=== PATIENT | male | born 1985 | race Two or more races ===

== ENCOUNTER 2017-06-15 04:12 | Inpatient (IN) | payer MEDICAID, OTHER, SELFPAY ==
[~2017-06-15] VITALS: Ht 180.3 cm; Wt 88.0 kg
[2017-06-15] MEDS ORDERED: MORPHINE 4 MG/ML 1ML SYRINGE IV ONE ×2 (04:45→07:45)
[2017-06-15] MEDS ORDERED: ONDANSETRON 4MG/2ML VIAL (J2405) IV ONE (04:45)
[2017-06-15 04:46] LABS: MEAN CORPUSCULAR HEMOGLOBIN 30.4 pg (27.0-33.0); MEAN CORPUSCULAR HGB CONC 34.9 g/dl (32.0-36.5); MEAN CORPUSCULAR VOLUME 86.9 fl (80.0-96.0); PLATELET COUNT, AUTOMATED 158 10^3/uL (150-450); RED CELL DISTRIBUTION WIDTH 12.8 % (11.5-14.5); WHITE BLOOD COUNT 25.6 10^3/uL (4.0-10.0)
[2017-06-15 04:54] LABS: ADD MANUAL DIFFER YES; DIFF SLIDE NUMBER 107
[2017-06-15 05:12] LABS: ANION GAP 8 MEQ/L (8-16); BLOOD UREA NITROGEN 17 MG/DL (7-18); CALCIUM LEVEL 9.8 MG/DL (8.5-10.1); CARBON DIOXIDE LEVEL 27 MEQ/L (21-32); CHLORIDE LEVEL 101 MEQ/L (98-107); CREATININE FOR GFR 1.25 MG/DL (0.70-1.30); GLOMERULAR FILTRATION RATE > 60.0 (>60); GLUCOSE, FASTING 148 MG/DL (70-105); POTASSIUM SERUM 3.6 MEQ/L (3.5-5.1); SODIUM LEVEL 136 MEQ/L (136-145)
[2017-06-15] MEDS ORDERED: ISOVUE-370 76% 100ML VIAL (Q9967) As Ordered ONE (05:23)
[2017-06-15 05:49] LABS: EOSINOPHILS 1 % (0-5)
--- NOTE | 2017-06-15 06:40 | REPUSA ---
CLINICAL HISTORY: Chest, abdominal pain. TECHNIQUE: Multiple axial, sagittal and coronal CT images were obtained through the chest, abdomen an d pelvis with IV contrast material. No contrast in the lumen of the aorta. Contrast is seen in the co llecting systems. COMMENTS: Bilateral cavitating subpleural consolidations are noted in the lower lobes measuring 1.8 cm on the r ight side and 2.2 cm on the left side. There is bilateral peribronchial interstitial thickening suggestive of bronchitis. Subsegmental atelectatic airspace disease in the anterior segment of the right upper lobe. There is no evidence of pleural or parenchymal mass. There are no pleural effusions. There is no evidence of hilar or mediastinal lymphadenopathy. Specifically, there is no evidence for paratracheal and supraclavicular adenopathy. There is no evide nce for a chest or abdominal wall nodule or mass. The heart and great vessels are within normal limit s. The liver is moderately enlarged decreased attenuation without mass or defect. The gallbladder is wit hin normal limits. There is no intrahepatic or extrahepatic biliary ductal dilatation. The spleen is normal. The pancreas is of normal contour and attenuation characteristics. There is no evidence of adrenal mass. Both kidneys demonstrate prompt and equal nephrograms. The kidn eys are normal in size, shape and configuration. There is no evidence of renal mass. There is no hydr oureter or hydronephrosis. There is no bowel wall thickening. Sigmoid diverticulosis is present. No evidence for small or large bowel obstruction. There is no evidence of abdominal ascites or lymphadenopathy. There is no evidence of intrinsic or extrinsic bladder mass. There is no pelvic ascites or lymphadeno besty. The bony structures are free of lytic or blastic lesions. IMPRESSION: No contrast is identified in the lumen of the aorta. Limited evaluation of the lumen of the aorta. The contrast is seen in the collecting systems. No evidence of aortic aneurysm. Bronchitis. Hepatomegaly with fatty liver infiltration. Bilateral cavitating subpleural consolidation are noted in the lower lobes measuring 1.8 cm on the ri ght side and 2.2 cm on the left side. Possibly infectious/inflammatory pathology. Clinical evaluation and followup are suggested to exclude underlying neoplastic pathology. Thank you for your kind referral of this patient.
[2017-06-15] MEDS ORDERED: PERCOCET 5MG/325MG TAB PO ONE (07:00)
[2017-06-15] MEDS ORDERED: cefTRIAXone SOD 1 GM in D5W 50 ML IV ONE (07:15)
[2017-06-15] MEDS ORDERED: AZITHROMYCIN INJ 500 MG, VIAL MATE ADAPTER 1 EACH in D5W 250 ML IV ONE (07:15)
[2017-06-15] MEDS ORDERED: NS 1,000 ML IV ONE ×3 (07:15→08:00)
[2017-06-15 07:23] LABS: ALBUMIN 4.6 GM/DL (3.2-5.2); ALBUMIN/GLOBULIN RATIO 1.31 (1.00-1.93); ALKALINE PHOSPHATASE 121 U/L (45-117); ALT/SGPT 40 U/L (12-78); AST/SGOT 16 U/L (15-37); BILIRUBIN,DIRECT 0.3 MG/DL (0.0-0.2); BILIRUBIN,TOTAL 1.2 MG/DL (0.2-1.0); TOTAL PROTEIN 8.1 GM/DL (6.4-8.2)
[2017-06-15] MEDS ORDERED: ALBUTEROL SULFATE 2.5 MG/0.5 ML INH NEB SOLN INH ONE (07:45)
[2017-06-15] MEDS ORDERED: VANCOMYCIN HCL 1,000 MG, VIAL MATE ADAPTER 1 EACH in D5W 250 ML IV ONE (07:45)
[2017-06-15] MEDS ORDERED: methylPREDNISolone INJ 40 MG/1 ML VIAL (J2920) IV ONE (07:45)
[2017-06-15] MEDS ORDERED: IPRATROPIUM 0.5MG/ALBUTEROL 2.5MG INH SOL UD 3ML (DUONEB)(J7620) NEB ONE (07:45)
[2017-06-15] MEDS ORDERED: ACETAMINOPHEN TAB 650MG DOSE (2X325MG) PO PRN (08:00)
[2017-06-15 08:08] LABS: ABG BASE EXCESS 0.2 (-2.0-2.0); ABG HCO3 24.1 MEQ/L (22.0-26.0); ABG PARTIAL PRESSURE O2 71.7 mmHg (75.0-100.0); ABG STANDARD HCO3 24.6 MEQ/L (22.0-26.0); ABG TOTAL CO2 25.3 MEQ/L (22.0-29.0); ABG pH (ARTERIAL) 7.432 UNITS (7.350-7.450)
--- NOTE | 2017-06-15 08:08 | REP ---
Chest two views HISTORY: Chest pain Comparison: None Patchy densities are present in the right upper lobe and left lower lobe consistent with atelectasis or infiltrates. The heart is normal in size. The pulmonary vasculature is normal in appearance. The bony structure is intact. IMPRESSION: Right upper and left lower lobe atelectasis or infiltrate. Signed by Henry López MD 06/15/2017 07:59 A
[2017-06-15] MEDS ORDERED: methylPREDNISolone INJ 125 MG/2 ML VIAL (J2930) IV ONE (08:15)
[2017-06-15] MEDS ORDERED: ACETAMINOPHEN 325 MG TAB PO ONE (08:30)
[2017-06-15 08:35] LABS: METHADONE URINE NEGATIVE (NEGATIVE)
[2017-06-15] MEDS: ENOXAPARIN 40 MG/0.4 ML SYRINGE (J1650) SC SCH (10:12)
[2017-06-15] MEDS: NS 1,000 ML IV SCH ×3 (11:08→22:00)
--- NOTE | 2017-06-15 11:35 | REP ---
BILATERAL LOWER EXTREMITY DUPLEX VEINS: HISTORY: Rule out DVT. RIGHT LOWER EXTREMITY: There are no filling defects in the deep venous system. The deep venous system is patent. IMPRESSION: There is no deep venous thrombosis. LEFT LOWER EXTREMITY: There are no filling defects in the deep venous system. The deep venous system is patent. IMPRESSION: There is no deep venous thrombosis. Signed by Henry López MD 06/15/2017 11:43 A
[2017-06-15] MEDS: VANCOMYCIN HCL 1,000 MG, VIAL MATE ADAPTER 1 EACH in D5W 250 ML IV SCH ×2 (12:12→20:14)
[2017-06-15 12:38] LABS: INR 1.12
[2017-06-15] MEDS: MORPHINE 4 MG/ML 1ML SYRINGE IV PRN ×3 (13:09→22:58)
[2017-06-15 14:00] VITALS: BP 161/84
[2017-06-15] MEDS ORDERED: SODIUM CHLORIDE 0.9% 1000 ML IV ONE (14:00)
--- NOTE | 2017-06-15 14:31 | HPEPDOC ---
General Date of Admission Jun 15, 2017 at 09:44 Chief Complaint The patient is a 32-year-old male who presented to the ER with complaints of pain with breathing and upper chest pain History of Present Illness Patient is a 32 year old male with no significant PMHx who presented to the ER with complaints of upper back pain and lower chest pain for the last few days. He noted that the pain started in his upper back, indicating the area of his lower lungs. He noted that after the pain started he has been complaining of a non-productive cough. He notes fevers and chills at home as well, but has not measure his temperature. He noted that his pain continued to progress and he started to experience the pain on his anterior chest wall bilaterally. He describes the pain as a 10/10 initially, currently at a 5/10 after he received the pain medications. He notes that the pain is continuous, radiating from back to front, worsened with deep inspiration and alleviated with pain medications in the ER. Patient notes that he has been having a runny nose for a few days as well. He also notes that he use Cocaine a few days ago and Marijuana a while back. He denies any abdominal pain, nausea, vomiting, diarrhea, constipation or dysuria. Home Medications No Active Prescriptions or Reported Meds Allergies Coded Allergies: No Known Allergies (Unverified , 06/15/17) Past Medical History Medical History None reported Surgical History None reported Family History - Mother and Father with no reported medical problems - Noted to have no family history of blood clots / pulmonary embolism - Noted that his paternal grandfather has a history of Lung cancer (was a smoker ) Social History - Reports he quit smoking a few months ago, was an occasional smoker prior to that, Reports social alcohol use; He admitted to using Cocaine and Marijuana - Denies recent travel or sick contacts - Lives with - 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 Review of Symptoms Other systems Negative otherwise stated in HPI Vital Signs - Vitals: BP 146/67, HR 76, RR 20, Sat 100%NC4L, Temp 97.7F - General: Lying in bed, No acute distress, Speaking in full sentences, AAOx3 - HEENT: NC, AT, PERRLA, EOMI - CVS: RRR, +S1S2 - Lungs: Poor inspiratory effort 2/2 pain, No appreciable crackles / rhonchi - Abdomen: Soft, Non-distended, Non-tender - Extremities: + PPx4, No lower extremity edema, No calf tenderness - Neuro: No focal motor or sensory deficit - Skin: No visible rashes Laboratory Data Labs 24H Laboratory Tests 2 06/15/17 04:35: Urine Amphetamines Screen NEGATIVE, Urine Benzodiazepines Screen NEGATIVE, Urine Opiates Screen POSITIVEH, Urine Methadone Screen NEGATIVE, Urine Barbiturates Screen NEGATIVE, Urine Phencyclidine Screen NEGATIVE, Urine Cocaine Metabolite Screen POSITIVEH, Urine Cannabinoids Screen POSITIVEH 06/15/17 04:37: White Blood Count 25.6H, Red Blood Count 5.27, Hemoglobin 16.0, Hematocrit 45.8 , Mean Corpuscular Volume 86.9, Mean Corpuscular Hemoglobin 30.4, Mean Corpuscular Hemoglobin Concent 34.9, Red Cell Distribution Width 12.8, Platelet Count 158, Monocytes # (Auto) , Neutrophils 86H, Lymphocytes (Manual) 6L, Monocytes (Manual) 7, Eosinophils (Manual) 1, Red Blood Cell Morphology NORMAL, Platelet Estimate NORMAL, Urine Appearance HAZY, Urine Color YELLOW, Urine pH 7.0, Urine Specific [place] 1.024, Urine Protein 1+H, Urine Glucose (UA) NEGATIVE, Urine Ketones NEGATIVE, Urine Urobilinogen 0.2, Urine Bilirubin NEGATIVE, Urine Leukocyte Esterase NEGATIVE, Urine Blood NEGATIVE, Urine Nitrite NEGATIVE, Urine WBC (Auto) 1, Urine RBC (Auto) 4H, Urine Hyaline Casts ( Auto) 0, Urine Bacteria (Auto) NEGATIVE, Urine Squamous Epithelial Cells 0, Urine Mucus (Auto) SMALL, Urine Sperm (Auto) , Lactic Acid Level 2.4*H 06/15/17 04:38: Anion Gap 8, Glomerular Filtration Rate > 60.0, Blood Urea Nitrogen 17, Creatinine 1.25, Sodium Level 136, Potassium Level 3.6, Chloride Level 101, Carbon Dioxide Level 27, Calcium Level 9.8, Aspartate Amino Transf (AST/SGOT) 16 , Alanine Aminotransferase (ALT/SGPT) 40, Alkaline Phosphatase 121H, Total Bilirubin 1.2H, Direct Bilirubin 0.3H, Total Creatine Kinase 70, Creatine Kinase MB 1.0, Creatine Kinase MB Relative Index 1.38, Troponin I < 0.02, Total Protein 8.1, Albumin 4.6, Albumin/Globulin Ratio 1.31 06/15/17 07:47: Blood Gas Bicarbonate Standard 24.6, Arterial Blood pH 7.432, Arterial Blood Partial Pressure CO2 37.0, Arterial Blood Partial Pressure O2 71.7L, Arterial Blood Total CO2 25.3, Arterial Blood HCO3 24.1, Arterial Blood Base Excess 0.2, Arterial Blood Oxygen Saturation 95.4 06/15/17 10:45: Total Creatine Kinase 59, Creatine Kinase MB 1.0, Creatine Kinase MB Relative Index 1.69, Troponin I < 0.02 06/15/17 12:05: Prothrombin Time 14.6H, Prothromb Time International Ratio 1.12, Activated Partial Thromboplast Time 29.9, Lactic Acid Followup at 4 Hours 2.5*H CBC/BMP Laboratory Tests 06/15/17 04:37 Red Blood Count 5.27, Mean Corpuscular Volume 86.9, Mean Corpuscular Hemoglobin 30.4, Mean Corpuscular Hemoglobin Concent 34.9, Red Cell Distribution Width 12.8 , Monocytes # (Auto) 06/15/17 04:38 Calcium Level 9.8 Microbiology Microbiology 06/15/17 Blood Culture, Received Pending 06/15/17 Blood Culture, Received Pending 06/15/17 MRSA Screen, Received Pending 06/15/17 Influenza Virus Type A Antigen - Final, Complete 06/15/17 Influenza Virus Type B Antigen - Final, Complete Plan / VTE VTE Prophylaxis Ordered?: Yes Plan Plan Sepsis likely 2/2 bilateral cavitary pneumonia, possibly 2/2 pulmonary embolism - Presented with pleuritic chest pain and back pain, worsened with deep inspiration - Noted to have fever and chills at home - Recent viral illness - Physical with poor inspiratory effort, febrile at 101.1 - Leukocytosis of 25.6; Lactic acidosis of 2.5 - ABG does not reveal any respiratory compromise; elevate Aa gradient for age - CTA 06/15: failed timing of contrast, hepatomegaly with fatty infiltration, bilateral cavitating subpleural consolidation in LL on R (1.8cm) and L (2.2cm) - Duplex US LE 06/15: Negative bilaterally - Will check Strep pneumonia antigen, Urine legionella antigen, Sputum culture, Blood cultures, MRSA screen - Will plan to repeat CT angiography of chest to definitively rule out PE - s/p Ceftriaxone, Azithromycin and Vancomycin in ER - Will start IV fluid hydration, c/w Vancomycin (Methicillin resistant Staph aureus coverage for post-viral pneumonia) and Zosyn (Coverage for anaerobic species given cavitary lung lesions) - Will discuss with Dr. Costa (Pulmonary) - Will keep in PCU for monitoring Pleuritic chest pain likely 2/2 above, unlikely 2/2 cardiac etiology - Atypical description of chest pain for cardiac etiology - Troponin x2 negative - Will review EKG - c/w PCU monitoring - Will c/w pain control for now Lactic acidosis - s/p Bolus in ER - Will give additional bolus now - Will start IV fluid hydration Polysubstance abuse - Drug screen positive for Cocaine, Cannabinoids and Opiates - Admitted to Cocaine, Cannabinoids - Did mention that he takes Vicodin on occasion for tooth pain Gastrointestinal prophylaxis - Will start Protonix DVT prophylaxis - Will start Lovenox JOSE MCGOVERN MD Jun 15, 2017 14:31
[2017-06-15] MEDS: PANTOPRAZOLE 40MG INJ (PROTONIX) (C9113) IV SCH (14:51)
[2017-06-15] MEDS: PIPERACILLIN/TAZOBACTAM SOD 3.375 GM in D5W 50 ML IV SCH ×2 (14:51→22:57)
--- NOTE | 2017-06-15 15:23 | PHACANCOPD ---
PHARMACY VANCOMYCIN DOSING Pt Demographics Demographics Patient Age:32 , Weight:86.400 , Gender: male Adjusted Body Weight Date: 06/15/17, Adjusted Body Weight: [NA] Kg Events Past 24 Hours Events Past 24 Hours: YES: Fever, Elevation in WBC, NO: Dialysis, Diuretic Therapy, Change in CrCl, Pending Diagnostics, Pending Procedures, Other Vancomycin Vancomycin indication: cavitary lesions in lung Vancomycin Target Ranges: 15-20 mcg/ml Vancomycin Load Y/N: Yes Load Dose Date Time Vancomycin Load Dose: 1000mg Date: 06/15 Time: ~08:00 Vancomycin Dose Date: 06/15/17. Current Vancomycin Dose: [1g IV q8h @11] Intermittent Dosing?: No Labs Labs Item Value Date Time White Blood Count 25.6 10^3/uL H 06/15/17 0437 Creatinine 1.25 MG/DL 06/15/17 0438 Vital Signs Label Value Date Time Patient Temperature 101.1 degrees F 06/15/17 0819 Temperature Source Oral 06/15/17 0819 Patient Temperature 99.1 degrees F 06/15/17 0855 Temperature Source Oral 06/15/17 0855 Micro Microbiology 06/15/17 Blood Culture, Received Pending 06/15/17 Blood Culture, Received Pending 06/15/17 MRSA Screen, Received Pending 06/15/17 Influenza Virus Type A Antigen - Final, Complete 06/15/17 Influenza Virus Type B Antigen - Final, Complete Creatinine Clearance Date:06/15/17. Creatinine Clearance: [89 ml/min]. Pending Labs Vanco trough scheduled 06/16 @10:00 Assessment and Plan Maintaining Current Dose?: Yes Reason for dose change: No Dose Change Pharmacist Note Pharmacist Note Date: 06/15/17. Pharmacist note: pt has been admitted for chest pain/pneumonia, CT imaging notable for b/l cavitary lesions in the lung. Pt has a Hx of drug use , MRSA and blood cultures are pending. He has not been on vancomycin at our facility in the past. I have started on a 2g load (1g @~08:00, 12:15) followed by 1g IV q8h. I have a trough scheduled tomorrow morning before the 11am dose. SCr is slightly elevated, pt received multiple NS boluses in the ER. We will continue to monitor and follow up as necessary. Esvin Licona Pharm.D. Jun 15, 2017 15:23
[2017-06-15 16:00] VITALS: BP 160/83
[2017-06-15 20:00] VITALS: BP 148/71
--- NOTE | 2017-06-15 20:46 | ECGEPIP ---
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 Electronically Signed On 06-15-2017 20:46:23 EDT by Dre Jarrett
[2017-06-15 22:25] VITALS: BP 143/85
[2017-06-16] VITALS (14 sets, daily range): BP systolic 133–156; BP diastolic 74–86; O2SAT 97
[2017-06-16] MEDS: VANCOMYCIN HCL 1,000 MG, VIAL MATE ADAPTER 1 EACH in D5W 250 ML IV SCH ×3 (04:09→17:40)
[2017-06-16] MEDS: NS 1,000 ML IV SCH ×4 (04:09→23:44)
[2017-06-16] MEDS: MORPHINE 4 MG/ML 1ML SYRINGE IV PRN ×2 (04:20→07:47)
[2017-06-16] MEDS: PIPERACILLIN/TAZOBACTAM SOD 3.375 GM in D5W 50 ML IV SCH ×3 (05:38→22:24)
[2017-06-16 05:53] LABS: MEAN CORPUSCULAR HEMOGLOBIN 29.9 pg (27.0-33.0); MEAN CORPUSCULAR HGB CONC 33.5 g/dl (32.0-36.5); MEAN CORPUSCULAR VOLUME 89.3 fl (80.0-96.0); PLATELET COUNT, AUTOMATED 115 10^3/uL (150-450); RED CELL DISTRIBUTION WIDTH 13.2 % (11.5-14.5)
[2017-06-16 06:03] LABS: ADD MANUAL DIFFER YES; DIFF SLIDE NUMBER 81
[2017-06-16 06:06] LABS: ALBUMIN 3.1 GM/DL (3.2-5.2); ALBUMIN/GLOBULIN RATIO 0.86 (1.00-1.93); ALKALINE PHOSPHATASE 72 U/L (45-117); ALT/SGPT 24 U/L (12-78); ANION GAP 7 MEQ/L (8-16); AST/SGOT 8 U/L (15-37); BILIRUBIN,TOTAL 0.6 MG/DL (0.2-1.0); BLOOD UREA NITROGEN 11 MG/DL (7-18); CALCIUM LEVEL 8.8 MG/DL (8.5-10.1); CARBON DIOXIDE LEVEL 23 MEQ/L (21-32); CHLORIDE LEVEL 108 MEQ/L (98-107); GLOMERULAR FILTRATION RATE > 60.0 (>60); GLUCOSE, FASTING 146 MG/DL (70-105); POTASSIUM SERUM 4.4 MEQ/L (3.5-5.1); SODIUM LEVEL 138 MEQ/L (136-145); TOTAL PROTEIN 6.7 GM/DL (6.4-8.2)
[2017-06-16] MEDS: PANTOPRAZOLE 40MG INJ (PROTONIX) (C9113) IV SCH (07:46)
[2017-06-16] MEDS: ENOXAPARIN 40 MG/0.4 ML SYRINGE (J1650) SC SCH (07:47)
[2017-06-16] MEDS ORDERED: cefTRIAXone SOD 1 GM in D5W 50 ML IV SCH (08:00)
[2017-06-16] MEDS: MORPHINE 15 MG SA TAB PO SCH ×2 (08:30→20:43)
[2017-06-16] MEDS ORDERED: AZITHROMYCIN INJ 500 MG, VIAL MATE ADAPTER 1 EACH in D5W 250 ML IV SCH (09:00)
[2017-06-16] MEDS: HYDROmorphone HCL 1 MG/ML SYRINGE (J1170) IV PRN ×4 (09:17→21:10)
--- NOTE | 2017-06-16 12:53 | IPNPDOC ---
Text Note Date of Service The patient was seen on 06/16/17. NOTE Subjective: Patient is a 32 year old male with no significant PMHx who presented to the ER with complaints of upper back pain and lower chest pain for the last few days. Patient was found to have 2 cavitary lesions in his lungs bilaterally. He was admitted for pneumonia to the hospitalist service. Patient was seen and examined at the bedside. He notes that he has not had any relief with Morphine and appears to be visible in pain. He notes that he has had some productive sputum that could be cultured. He denies any palpitations, nausea, vomiting, diarrhea or dysuria. Objective: Vitals (See below) General: Lying in bed, no acute distress, uncomfortable 2/2 pain, AAOx3 HEENT: NC, AT CVS: RRR, +S1S2 Lungs: Poor inspiratory effort, Abdomen: Soft, ND, NT Extremities: - Edema, - Calf tenderness Assessment and plan: Sepsis - likely 2/2 bilateral cavitary lesions in lungs - possibly 2/2 poor dentition, possibly 2/2 pneumonia, less likely 2/2 pulmonary embolism - Presented with pleuritic chest / back pain, fever and chills, and poor dentition - No fevers since admission - Leukocytosis has show improvement ; s/p Lactic acidosis - CTA 06/15: failed timing of contrast, hepatomegaly with fatty infiltration, bilateral cavitating subpleural consolidation in LL on R (1.8cm) and L (2.2cm) - Duplex US LE 06/15: Negative bilaterally - Will check Strep pneumonia antigen, Urine legionella antigen, Sputum culture pending, - Blood cultures negative at 24 hours, MRSA screen Negative, Influenza negative - s/p Ceftriaxone, Azithromycin and Vancomycin in ER - c/w Zosyn and Vancomycin (Day #2) Pleuritic chest pain - likely 2/2 above, unlikely 2/2 cardiac etiology - Atypical description of chest pain for cardiac etiology - Troponin x2 negative - EKG 06/15: Sinus tachy at 102, No ST segment elevation or T wave abnormalities noted - c/w PCU monitoring - Will adjust pain regimen; will add long acting Morphine and Change Morphine to Dilaudid for breakthrough pain s/p Lactic acidosis - s/p Bolus NS - c/w IV fluid hydration Polysubstance abuse - Drug screen positive for Cocaine, Cannabinoids and Opiates - Admitted to Cocaine, Cannabinoids - Did mention that he takes Vicodin on occasion for tooth pain Gastrointestinal prophylaxis - c/w Protonix DVT prophylaxis - c/w Lovenox VS,Fishbone, I+O VS, Fishbone, I+O Laboratory Tests 06/16/17 05:33 Red Blood Count 4.11 L, Mean Corpuscular Volume 89.3, Mean Corpuscular Hemoglobin 29.9, Mean Corpuscular Hemoglobin Concent 33.5, Red Cell Distribution Width 13.2, Calcium Level 8.8, Aspartate Amino Transf (AST/SGOT) 8 L, Alanine Aminotransferase (ALT/SGPT) 24, Alkaline Phosphatase 72, Total Bilirubin 0.6, Total Protein 6.7, Albumin 3.1 #L Vital Signs Date Time Temp Pulse Resp B/P (MAP) Pulse Ox O2 Delivery O2 Flow Rate FiO2 06/16/17 10:00 97 Room Air 06/16/17 09:27 18 06/16/17 08:00 98.6 83 134/85 (101) 06/15/17 16:00 4.0 I&O- Last 24 Hours up to 6 AM 06/17/17 06:00 Intake Total 1000 ml Output Total 600 ml Balance 400 ml JOSE MCGOVERN MD Jun 16, 2017 12:53
[2017-06-16] MEDS ORDERED: HYDROmorphone HCL 1 MG/ML SYRINGE (J1170) IV ONE (15:45)
[2017-06-17] VITALS (14 sets, daily range): BP systolic 132–144; BP diastolic 72–91; O2SAT 96–98
[2017-06-17] MEDS: VANCOMYCIN HCL 1,000 MG, VIAL MATE ADAPTER 1 EACH in D5W 250 ML IV SCH ×2 (02:43→11:44)
[2017-06-17] MEDS: HYDROmorphone HCL 1 MG/ML SYRINGE (J1170) IV PRN ×7 (02:44→23:44)
[2017-06-17 06:14] LABS: BASO % 0.3 % (0.0-1.0); EOS # 0.2 10^3/uL (0.0-0.50); EOS % 1.9 % (0.0-3.0); IMMATURE GRANULOCYTE % 0.4 % (0-0); LYMPH # 1.6 10^3/uL (1.5-4.5); LYMPH % 13.9 % (24.0-44.0); MEAN CORPUSCULAR HEMOGLOBIN 29.3 pg (27.0-33.0); MEAN CORPUSCULAR HGB CONC 33.2 g/dl (32.0-36.5); MEAN CORPUSCULAR VOLUME 88.4 fl (80.0-96.0); MONO # 0.9 10^3/uL (0.0-0.8); MONO % 7.3 % (0.0-5.0); NEUTROPHILS % 76.2 % (36.0-66.0); PLATELET COUNT, AUTOMATED 121 10^3/uL (150-450); RED CELL DISTRIBUTION WIDTH 13.2 % (11.5-14.5); WHITE BLOOD COUNT 11.8 10^3/uL (4.0-10.0)
[2017-06-17] MEDS: NS 1,000 ML IV SCH (06:19)
[2017-06-17] MEDS: PIPERACILLIN/TAZOBACTAM SOD 3.375 GM in D5W 50 ML IV SCH ×3 (06:19→21:27)
[2017-06-17 06:45] LABS: ALBUMIN 3.2 GM/DL (3.2-5.2); ALBUMIN/GLOBULIN RATIO 0.78 (1.00-1.93); ALKALINE PHOSPHATASE 77 U/L (45-117); ALT/SGPT 24 U/L (12-78); ANION GAP 6 MEQ/L (8-16); AST/SGOT 12 U/L (15-37); BILIRUBIN,TOTAL 0.8 MG/DL (0.2-1.0); BLOOD UREA NITROGEN 13 MG/DL (7-18); CALCIUM LEVEL 8.8 MG/DL (8.5-10.1); CARBON DIOXIDE LEVEL 26 MEQ/L (21-32); CHLORIDE LEVEL 105 MEQ/L (98-107); CREATININE FOR GFR 0.99 MG/DL (0.70-1.30); GLOMERULAR FILTRATION RATE > 60.0 (>60); GLUCOSE, FASTING 84 MG/DL (70-105); MAGNESIUM LEVEL 2.1 MG/DL (1.8-2.4); POTASSIUM SERUM 3.5 MEQ/L (3.5-5.1); SODIUM LEVEL 137 MEQ/L (136-145); TOTAL PROTEIN 7.3 GM/DL (6.4-8.2)
[2017-06-17] MEDS: KCL 40MEQ in NS 1000ML 1,000 ML IV SCH ×2 (08:36→20:33)
[2017-06-17] MEDS: MORPHINE 15 MG SA TAB PO SCH ×2 (08:37→20:33)
[2017-06-17] MEDS: ENOXAPARIN 40 MG/0.4 ML SYRINGE (J1650) SC SCH (08:37)
[2017-06-17] MEDS: PANTOPRAZOLE 40MG INJ (PROTONIX) (C9113) IV SCH (08:39)
--- NOTE | 2017-06-17 11:03 | IPNPDOC ---
Text Note Date of Service The patient was seen on 06/17/17. NOTE Subjective: Patient is a 32 year old male with no significant PMHx who presented to the ER with complaints of upper back pain and lower chest pain for the last few days. Patient was found to have 2 cavitary lesions in his lungs bilaterally. He was admitted for pneumonia to the hospitalist service. Patient was seen and examined at the bedside. He notes that he still has pain around his lower ribs and back, rated the pain as a 3/10 with the current pain medications. He also has noted that he has been coughing up more sputum. I have advised him that we will collect it for a sputum sample. Objective: Vitals (See below) General: Lying in bed, no acute distress, comfortable, AAOx3 HEENT: NC, AT CVS: RRR, +S1S2 Lungs: Poor inspiratory effort, no appreciable crackles / wheezing Abdomen: Soft, ND, NT Extremities: - Edema, - Calf tenderness Assessment and plan: Sepsis - likely 2/2 bilateral cavitary lesions in lungs - possibly 2/2 poor dentition, possibly 2/2 pneumonia, less likely 2/2 pulmonary embolism - Presented with pleuritic chest / back pain, fever and chills, and poor dentition - Remains afebrile - Leukocytosis significantly improved; CRP trending down; s/p Lactic acidosis - CTA 06/15: failed timing of contrast, hepatomegaly with fatty infiltration, bilateral cavitating subpleural consolidation in LL on R (1.8cm) and L (2.2cm) - Duplex US LE 06/15: Negative bilaterally - Strep pneumonia antigen / Urine legionella antigen / Sputum culture pending - Blood cultures negative at 48 hours, MRSA screen Negative, Influenza negative - s/p Ceftriaxone, Azithromycin and Vancomycin in ER - c/w Zosyn and Vancomycin (Day #3) - Will consider repeat CTA Pleuritic chest pain - likely 2/2 above, unlikely 2/2 cardiac etiology - Atypical description of chest pain for cardiac etiology - Troponin x2 negative - EKG 06/15: Sinus tachy at 102, No ST segment elevation or T wave abnormalities noted - c/w PCU monitoring - c/w Long acting morphine for maintenance and Dilaudid for breakthrough pain s/p Lactic acidosis - s/p Bolus NS - c/w IV fluid hydration; will reduce rate Polysubstance abuse - Drug screen positive for Cocaine, Cannabinoids and Opiates - Admitted to Cocaine, Cannabinoids - Did mention that he takes Vicodin on occasion for tooth pain Gastrointestinal prophylaxis - c/w Protonix DVT prophylaxis - c/w Lovenox VS,Fishbone, I+O VS, Fishbone, I+O Laboratory Tests 06/17/17 05:39 Red Blood Count 4.67, Mean Corpuscular Volume 88.4, Mean Corpuscular Hemoglobin 29.3, Mean Corpuscular Hemoglobin Concent 33.2, Red Cell Distribution Width 13.2 , Neutrophils (%) (Auto) 76.2 H, Lymphocytes (%) (Auto) 13.9 L, Monocytes (%) ( Auto) 7.3 H, Eosinophils (%) (Auto) 1.9, Basophils (%) (Auto) 0.3, Neutrophils # (Auto) 9.0 H, Lymphocytes # (Auto) 1.6, Monocytes # (Auto) 0.9 H, Eosinophils # (Auto) 0.2, Basophils # (Auto) 0.0, Calcium Level 8.8, Aspartate Amino Transf (AST/SGOT) 12 L, Alanine Aminotransferase (ALT/SGPT) 24, Alkaline Phosphatase 77 , Total Bilirubin 0.8, Total Protein 7.3, Albumin 3.2 Vital Signs Date Time Temp Pulse Resp B/P (MAP) Pulse Ox O2 Delivery O2 Flow Rate FiO2 06/17/17 09:29 20 Room Air 06/17/17 08:00 97.8 77 140/75 (96) 06/17/17 06:47 96 06/15/17 16:00 4.0 I&O- Last 24 Hours up to 6 AM 06/18/17 06:00 Intake Total 495 ml Output Total 0 ml Balance 495 ml JOSE MCGOVERN MD Jun 17, 2017 11:03
[2017-06-18] VITALS (14 sets, daily range): BP systolic 133–140; BP diastolic 79–90; O2SAT 93–97
[2017-06-18] MEDS: PIPERACILLIN/TAZOBACTAM SOD 3.375 GM in D5W 50 ML IV SCH ×2 (05:14→13:36)
[2017-06-18 05:45] LABS: BASO # 0.1 10^3/uL (0.0-0.2); BASO % 0.5 % (0.0-1.0); EOS # 0.6 10^3/uL (0.0-0.50); EOS % 6.3 % (0.0-3.0); IMMATURE GRANULOCYTE % 0.5 % (0-0); LYMPH # 1.5 10^3/uL (1.5-4.5); MEAN CORPUSCULAR HEMOGLOBIN 29.5 pg (27.0-33.0); MEAN CORPUSCULAR HGB CONC 33.8 g/dl (32.0-36.5); MEAN CORPUSCULAR VOLUME 87.3 fl (80.0-96.0); MONO # 0.8 10^3/uL (0.0-0.8); MONO % 8.9 % (0.0-5.0); NEUTROPHILS # 6.3 10^3/uL (1.8-7.7); NEUTROPHILS % 67.8 % (36.0-66.0); PLATELET COUNT, AUTOMATED 151 10^3/uL (150-450); RED CELL DISTRIBUTION WIDTH 12.8 % (11.5-14.5); WHITE BLOOD COUNT 9.4 10^3/uL (4.0-10.0)
[2017-06-18 06:19] LABS: ALKALINE PHOSPHATASE 74 U/L (45-117); ALT/SGPT 23 U/L (12-78); ANION GAP 8 MEQ/L (8-16); AST/SGOT 8 U/L (15-37); BILIRUBIN,TOTAL 0.9 MG/DL (0.2-1.0); BLOOD UREA NITROGEN 12 MG/DL (7-18); CALCIUM LEVEL 9.2 MG/DL (8.5-10.1); CARBON DIOXIDE LEVEL 25 MEQ/L (21-32); CHLORIDE LEVEL 105 MEQ/L (98-107); CREATININE FOR GFR 0.96 MG/DL (0.70-1.30); GLOMERULAR FILTRATION RATE > 60.0 (>60); GLUCOSE, FASTING 95 MG/DL (70-105); POTASSIUM SERUM 4.1 MEQ/L (3.5-5.1); SODIUM LEVEL 138 MEQ/L (136-145); TOTAL PROTEIN 7.3 GM/DL (6.4-8.2)
[2017-06-18] MEDS: KCL 40MEQ in NS 1000ML 1,000 ML IV SCH ×2 (07:39→17:37)
[2017-06-18] MEDS: MORPHINE 15 MG SA TAB PO SCH ×3 (09:06→22:30)
[2017-06-18] MEDS: PANTOPRAZOLE 40MG INJ (PROTONIX) (C9113) IV SCH (09:06)
[2017-06-18] MEDS: ENOXAPARIN 40 MG/0.4 ML SYRINGE (J1650) SC SCH (09:06)
[2017-06-18] MEDS: HYDROmorphone HCL 1 MG/ML SYRINGE (J1170) IV PRN ×2 (10:33→20:42)
--- NOTE | 2017-06-18 14:08 | IPNPDOC ---
Text Note Date of Service The patient was seen on 06/18/17. NOTE Subjective: Patient feels well. Still has a nonproductive cough. No chest pain/ palpitations. Objective: Vitals: (see below) General: No acute distress, laying comfortably in bed. HEENT: Moist mucous membranes. Neck: No JVD or lymphadenopathy Cardiac: RRR, No murmurs Pulm: Coarse crackles at the bases b/l. No wheezing, rhonchi Abd: NT/ND + BS Ext: No edema or cyanosis Labs (see below) Images: CT chest/abdomen/pelvis 06/15/17 IMPRESSION: No contrast is identified in the lumen of the aorta. Limited evaluation of the lumen of the aorta. The contrast is seen in the collecting systems. No evidence of aortic aneurysm. Bronchitis. Hepatomegaly with fatty liver infiltration. Bilateral cavitating subpleural consolidation are noted in the lower lobes measuring 1.8 cm on the right side and 2.2 cm on the left side. Possibly infectious/inflammatory pathology. Clinical evaluation and followup are suggested to exclude underlying neoplastic pathology. Assessment/Plan 1. Sepsis secondary to Bilateral cavitary lesions with consolidation- improving. Leukocytosis and CRP have trended down. Afebrile this point. On vancomycin and Zosyn. Does have poor dentition with history of cocaine/opioid/ marijuana use. Urine strep/Legionella sent. Blood cultures negative thus far. We will obtain consents for HIV test. ID has been consulted. Continue current antibiotics for now. 2. Back pain/chest wall pain- likely secondary to underlying cavitary lesions we will obtain a CT of the thoracic/lumbar spine. Pain control. 3. Lactic acidosis- resolved. 3. Polysubstance abuse- cessation counseling DVT prophy: Lovenox subcutaneous Dispo: VS,Fishbone, I+O VS, Fishbone, I+O Laboratory Tests 06/18/17 05:21 Red Blood Count 4.81, Mean Corpuscular Volume 87.3, Mean Corpuscular Hemoglobin 29.5, Mean Corpuscular Hemoglobin Concent 33.8, Red Cell Distribution Width 12.8 , Neutrophils (%) (Auto) 67.8 H, Lymphocytes (%) (Auto) 16.0 L, Monocytes (%) ( Auto) 8.9 H, Eosinophils (%) (Auto) 6.3 H, Basophils (%) (Auto) 0.5, Neutrophils # (Auto) 6.3, Lymphocytes # (Auto) 1.5, Monocytes # (Auto) 0.8, Eosinophils # (Auto) 0.6 H, Basophils # (Auto) 0.1, Calcium Level 9.2, Aspartate Amino Transf (AST/SGOT) 8 L, Alanine Aminotransferase (ALT/SGPT) 23, Alkaline Phosphatase 74, Total Bilirubin 0.9, Total Protein 7.3, Albumin 3.0 L Vital Signs Date Time Temp Pulse Resp B/P (MAP) Pulse Ox O2 Delivery O2 Flow Rate FiO2 06/18/17 12:00 97 Room Air 06/18/17 10:43 18 06/18/17 07:45 98.4 80 137/90 (106) 06/15/17 16:00 4.0 I&O- Last 24 Hours up to 6 AM 06/19/17 05:59 Intake Total 1905 ml Output Total 1050 ml Balance 855 ml IGOR LUCAS MD Jun 18, 2017 14:08
--- NOTE | 2017-06-18 15:28 | REP ---
CT THORACIC SPINE WITHOUT CONTRAST: HISTORY: Back pain. There is no disc bulge or herniation. The spinal canal and the neural foramina are patent. The intervertebral discs and vertebral bodies are normal in height. There is no subluxation. A small cavitary lesion is present in the right lower lobe. Patchy density is present in the left lower lobe consistent with atelectasis or infiltrate. A small left pleural effusion is present. IMPRESSION: 1. There is no disc bulge or herniation. 2. Small right lower lobe cavitary lesion, unchanged compared to the previous CT ANGIO chest. 3. Left lower lobe atelectasis or infiltrate and small left pleural effusion. Signed by Henry López MD 06/18/2017 03:38 P
--- NOTE | 2017-06-18 15:35 | REP ---
CT LUMBAR SPINE WITHOUT CONTRAST: HISTORY: Back pain. There is no disc bulge or herniation at the L1-2, L2-3 and L5-S1 levels. The nerves exit the neural foramina without compression. A diffuse disc bulge is present at the L3-4 level. There is minimal compression of the thecal sac. The L3 nerves exit the neural foramina without compression. A diffuse disc bulge is present at the L4-5 level. There is minimal compression of the thecal sac. The L4 nerves exit the neural foramina without compression. The L4-5 intervertebral disc is decreased in height consistent with disc degeneration. The vertebral bodies are normal in height. There is no subluxation. IMPRESSION: Diffuse disc bulges at the L3-4 and L4-5 levels with minimal thecal sac compression. Signed by Henry López MD 06/18/2017 03:38 P
[2017-06-18] MEDS ORDERED: ISOVUE-370 76% 100ML VIAL (Q9967) As Ordered ONE (16:29)
--- NOTE | 2017-06-18 17:08 | REP ---
CT of the chest with IV contrast, CT pulmonary angiography: Comparison is a chest CT dated 06/15/2017. There are no emboli in the pulmonary trunk or in the central pulmonary arteries. There is beam hardening artifact from the descending thoracic aorta. There are no emboli in the pulmonary lobe or segment branches. There are bilateral lower lobe pleural-based cavitary lesions, unchanged from the prior study. There is a left pleural effusion, similar to the prior study. There is no mediastinal adenopathy. There are enlarged right hilar nodes. There is no left hilar adenopathy. No axillary adenopathy. Thoracic aorta is unremarkable. Cardiac size is normal. There is no pericardial effusion. The visualized upper abdominal contents are unremarkable and unchanged. Impression: No pulmonary emboli. There is beam hardening artifact from the descending thoracic aorta. Left pleural effusion, unchanged. Bilateral lower lobe pleural-based cavitary lesions, unchanged. Right hilar adenopathy. Signed by Dev Feliz MD 06/18/2017 04:59 P
[2017-06-18] MEDS: CEFTAROLINE FOSAMIL 600 MG in D5W 50 ML IV SCH (17:37)
--- NOTE | 2017-06-18 19:04 | CR.PDOC ---
[facility] Consultation Consultation DATE OF CONSULTATION: Jun 15, 2017 at 04:12 PRIMARY CARE PHYSICIAN: None REFERRING PROVIDER: Dr. Montero ATTENDING PHYSICIAN: Dr. Laurent Foote REASON FOR CONSULTATION/CHIEF COMPLAINT: Cavitary lesions. HISTORY OF PRESENT ILLNESS: Mr. Monsalve is a 32-year-old male without a significant past medical history who presents to [facility] with persistent cough and back pain. Patient states that he was in his usual state of health up until three weeks ago. At that time he reported a runny nose with clear nasal secretions and an itchy nose. Denies any other allergy-type symptoms, fever, night sweats, chills, myalgias. He presented to the [facility] on [facility] and was prescribed an inhaler and an antibiotic as he was told he was nearing pneumonia. He states that they checked him for MRSA and influenza and was negative for both. He completed an approximate 10-day course of antibiotics, but does not feel that his upper respiratory symptoms improved. One day prior to the date of admission patient states that he developed a fever of 105.2. He took Tylenol which reduced the fever. On the day of admission at approximately 1-2am patient states that he could not get comfortable in bed and was restless due to severe, sharp left- sided low back pain that radiates to his left anterior abdomen with difficulty breathing and a persistent cough. The pain was so severe he was unable to stand. He vomited up noodles that he had the night before. Denies hematemesis or hemoptysis. Admits to decreased appetite, but no changes in weight. Had a loose, watery stool this morning without noticeable blood. Patient has never been incarcerated or in the . Denies recent travel to the [place] or a history of caving. Admits to exposures to bats and birds on his property, but not on a consistent basis. Admits to fishing and boating and is always on the water. He denies intravenous drug abuse. Admits to regular cannabis use for approximately 15 years. Denies recent marijuana use secondary to cough. States he carries an ADHD diagnosis, but did not like the medication he was and the marijuana helped with the ADHD symptoms. Admits to recent use of cocaine and opiates, but states that he does not usually use illicit drugs besides marijuana and that the cocaine and opiates were on a "stupid night." He received his childhood vaccinations, but has not had any recent vaccinations and does not have a primary care provider. Denies ever being tested for TB. Occasionally develops reflux symptoms and will take Omeprazole OTC. Patient was evaluated at [facility] on 04/21/2017 and was treated with Prednisone, Augmentin, and Ventolin. Current work-up this admission includes laboratory data which showed a leukocytosis of 25.6, a CRP of 16.00, a positive toxicology screen for cocaine, opiates, and marijuana. Different imaging modalities reported below revealed bilateral pleural cavitary lesions, right hilar adenopathy, no pulmonary embolism or evidence of deep venous thrombosis, and hepatomegaly with fatty infiltration of the liver without elevation in bilirubin or transaminases. Blood cultures, influenza, and MRSA screen were all negative. ALLERGIES: Please see below. HOME MEDICATIONS: Please see below. PAST MEDICAL HISTORY: 1. ADHD. 2. Hypertension. 3. History of bilateral hydroceles. PAST SURGICAL HISTORY: 1. [place] teeth extraction. 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 HEENT: Denies headache, tinnitus, peripheral vision loss, hearing loss. CARDIOVASCULAR: Denies chest pain, palpitations. RESPIRATORY: Admits to difficulty breathing; denies orthopnea, PND. GENITOURINARY: Denies hematuria, urinary urgency urinary frequency, dysuria. MUSCULOSKELETAL: Admits to severe, sharp left-sided back pain that has since improved; denies myalgias, weakness. GASTROINTESTINAL: Admits to one episode of non-bloody vomitus prior to admission , one episodes of loose, watery diarrhea this morning; denies nausea, abdominal pain, constipation. SKIN: Denies skin rashes, lesions, bruising, bleeding. NEUROLOGICAL: Denies numbness, tingling. ENDOCRINE: Admits to decreased appetite; denies weight changes. HEMATOLOGIC/LYMPHATIC: Denies hemoptysis, hematemesis, melena, hematochezia. ALLERGIC/IMMUNOLOGIC: Admits to runny nose, post-nasal drip cough; denies nasal congestion, itchy/watery eyes, sore throat. PHYSICAL EXAMINATION: VITAL SIGNS: Please see below. GENERAL APPEARANCE: Well nourished, well developed male, appears stated age, does not appear engaging, no acute distress. HEENT: Atraumatic, normocephalic, PERRL, EOMI, oral mucosa appears pink and moist, nasal septum appears midline, nasal secretions appreciated on internal nasal examination, crusted serous material noted on the right-sided internal nasal mucosa on the lateral aspect near the nasal orifice of the right nares, no evidence of epistaxis, no cervical, occipital, or clavicular lymphadenopathy appreciated. RESPIRATORY: Somewhat diminished breath sounds appreciated on the right lower lobe with possible fine inspiratory crackles, no wheeze or rhonchi, posterior lung percussion did not reveal any consolidation, tympany, or dullness CARDIOVASCULAR: Regular rate and rhythm, normal S1 and S2, no murmur, rub, click. ABDOMEN: Abdominal hair noted diffusely across the entire abdomen, somewhat round appearing, tympanic to percussion throughout, soft, non-tender, non- distended, hepatomegaly, bowel sounds appreciated. EXTREMITIES: Warm, dry, intact, without edema, peripheral pulses appreciated bilaterally, equal, symmetrical, +2, no visible open lesions. NEUROLOGICAL: CN II-XII grossly intact. PSYCHIATRIC: Alert, somewhat disengaged. LABORATORY DATA: Please see below. IMAGING: CT abdomen and pelvis with contrast IMPRESSION: No contrast is identified in the lumen of the aorta. Limited evaluation of the lumen of the aorta. The contrast is seen in the collecting systems. No evidence of aortic aneurysm. Bronchitis. Hepatomegaly with fatty liver infiltration. Bilateral cavitating subpleural consolidation are noted in the lower lobes measuring 1.8 cm on the right side and 2.2 cm on the left side. Possibly infectious/inflammatory pathology. Clinical evaluation and followup are suggested to exclude underlying neoplastic pathology. Chest x-ray, two view IMPRESSION: Right upper and left lower lobe atelectasis or infiltrate. Duplex ultrasound bilateral lower extremities IMPRESSION: There is no deep venous thrombosis. CT thoracic spine without contrast IMPRESSION: 1. There is no disc bulge or herniation. 2. Small right lower lobe cavitary lesion, unchanged compared to the previous CT ANGIO chest. 3. Left lower lobe atelectasis or infiltrate and small left pleural effusion. CT lumbar spine without contrast IMPRESSION: Diffuse disc bulges at the L3-4 and L4-5 levels with minimal thecal sac compression. CT chest angiography IMPRESSION: No pulmonary emboli. There is beam hardening artifact from the descending thoracic aorta. Left pleural effusion, unchanged. Bilateral lower lobe pleural-based cavitary lesions, unchanged. Right hilar adenopathy. ASSESSMENT/PLAN: This is a 32-year-old male without significant medical history that presents with cough and severe, sharp left-sided low back pain. Found to have bilateral pleural cavitary lesions. Patient was started on Vancomycin and Zosyn. The Vancomycin was discontinued today. Based on the patient's history and imaging there is a concern for post-viral staphylococcus pulmonary infection resulting in the cavitary lesions. For this reason the patient has been started on Ceftaroline for MRSA coverage. This could also be a right- sided bacterial endocarditis resulting in septic emboli. For this reason a transthoracic echocardiogram has been ordered. Have also ordered immunoglobulin A, G, and M for possible immunodeficiency based on chronicity of symptoms. Also obtaining a hepatitis C PCR and HIV. Thank you for involving infectious disease in the care of Mr. Monsalve. ID will continue to follow this patient and participate in his care. Vital Signs/I&O Vital Signs Date Time Temp Pulse Resp B/P (MAP) Pulse Ox O2 Delivery O2 Flow Rate FiO2 06/18/17 16:30 98.9 90 20 133/79 (97) 97 Room Air 06/15/17 16:00 4.0 I&O- Last 24 Hours up to 6 AM 06/19/17 06:00 Intake Total 1670 ml Output Total 450 ml Balance 1220 ml Laboratory Data Labs 24H Laboratory Tests 2 06/18/17 05:21: Immature Granulocyte % (Auto) 0.5H, White Blood Count 9.4, Red Blood Count 4.81 , Hemoglobin 14.2, Hematocrit 42.0, Mean Corpuscular Volume 87.3, Mean Corpuscular Hemoglobin 29.5, Mean Corpuscular Hemoglobin Concent 33.8, Red Cell Distribution Width 12.8, Platelet Count 151, Neutrophils (%) (Auto) 67.8H, Lymphocytes (%) (Auto) 16.0L, Monocytes (%) (Auto) 8.9H, Eosinophils (%) (Auto) 6.3H, Basophils (%) (Auto) 0.5, Neutrophils # (Auto) 6.3, Lymphocytes # (Auto) 1.5, Monocytes # (Auto) 0.8, Eosinophils # (Auto) 0.6H, Basophils # (Auto) 0.1, Immature Granulocyte # (Auto) 0.1H, Nucleated Red Blood Cells % (auto) 0.0, Anion Gap 8, Glomerular Filtration Rate > 60.0, Blood Urea Nitrogen 12, Creatinine 0.96, Sodium Level 138, Potassium Level 4.1, Chloride Level 105, Carbon Dioxide Level 25, Calcium Level 9.2, Aspartate Amino Transf (AST/SGOT) 8L , Alanine Aminotransferase (ALT/SGPT) 23, Alkaline Phosphatase 74, Total Bilirubin 0.9, Total Protein 7.3, Albumin 3.0L, Magnesium Level 2.0, C-Reactive Protein, Quantitative 11.70H, Albumin/Globulin Ratio 0.70L 06/18/17 15:39: CBC/BMP Laboratory Tests 06/18/17 05:21 Red Blood Count 4.81, Mean Corpuscular Volume 87.3, Mean Corpuscular Hemoglobin 29.5, Mean Corpuscular Hemoglobin Concent 33.8, Red Cell Distribution Width 12.8 , Neutrophils (%) (Auto) 67.8 H, Lymphocytes (%) (Auto) 16.0 L, Monocytes (%) ( Auto) 8.9 H, Eosinophils (%) (Auto) 6.3 H, Basophils (%) (Auto) 0.5, Neutrophils # (Auto) 6.3, Lymphocytes # (Auto) 1.5, Monocytes # (Auto) 0.8, Eosinophils # (Auto) 0.6 H, Basophils # (Auto) 0.1, Calcium Level 9.2, Aspartate Amino Transf (AST/SGOT) 8 L, Alanine Aminotransferase (ALT/SGPT) 23, Alkaline Phosphatase 74, Total Bilirubin 0.9, Total Protein 7.3, Albumin 3.0 L Microbiology Microbiology 06/15/17 Blood Culture - Preliminary, Resulted No Growth after 72 hours. All specime... 06/15/17 Blood Culture - Preliminary, Resulted No Growth after 72 hours. All specime... 06/15/17 MRSA Screen - Final, Complete 06/15/17 Influenza Virus Type A Antigen - Final, Complete 06/15/17 Influenza Virus Type B Antigen - Final, Complete Allergies Coded Allergies: No Known Allergies (Unverified , 06/15/17) Home Medications No Active Prescriptions or Reported Meds MARIA ALEJANDRA MOSQUERA Jun 18, 2017 19:01
[2017-06-18 19:09] LABS: IMMUNOGLOBULIN G 655 MG/DL (681-1648); IMMUNOGLOBULIN M 129 MG/DL (40-230)
[2017-06-19] MEDS: KCL 40MEQ in NS 1000ML 1,000 ML IV SCH ×2 (04:11→15:18)
[2017-06-19 05:15] VITALS: BP 136/75
[2017-06-19 05:35] LABS: BASO % 0.4 % (0.0-1.0); EOS # 0.8 10^3/uL (0.0-0.50); EOS % 6.8 % (0.0-3.0); LYMPH # 1.5 10^3/uL (1.5-4.5); LYMPH % 12.8 % (24.0-44.0); MEAN CORPUSCULAR HEMOGLOBIN 29.5 pg (27.0-33.0); MEAN CORPUSCULAR HGB CONC 34.3 g/dl (32.0-36.5); MEAN CORPUSCULAR VOLUME 86.1 fl (80.0-96.0); MONO % 9.6 % (0.0-5.0); NEUTROPHILS # 7.9 10^3/uL (1.8-7.7); NEUTROPHILS % 69.4 % (36.0-66.0); PLATELET COUNT, AUTOMATED 168 10^3/uL (150-450); RED CELL DISTRIBUTION WIDTH 12.6 % (11.5-14.5); WHITE BLOOD COUNT 11.4 10^3/uL (4.0-10.0)
[2017-06-19] MEDS: CEFTAROLINE FOSAMIL 600 MG in D5W 50 ML IV SCH ×2 (06:05→18:33)
[2017-06-19 06:12] LABS: ERYTHROCYTE SEDIMENTATION RATE 79 mm/hr (0-15)
[2017-06-19 06:16] LABS: ALBUMIN 3.1 GM/DL (3.2-5.2); ALBUMIN/GLOBULIN RATIO 0.74 (1.00-1.93); ALKALINE PHOSPHATASE 65 U/L (45-117); ALT/SGPT 24 U/L (12-78); ANION GAP 8 MEQ/L (8-16); AST/SGOT 9 U/L (15-37); BILIRUBIN,TOTAL 0.7 MG/DL (0.2-1.0); BLOOD UREA NITROGEN 10 MG/DL (7-18); CALCIUM LEVEL 9.2 MG/DL (8.5-10.1); CARBON DIOXIDE LEVEL 25 MEQ/L (21-32); CHLORIDE LEVEL 104 MEQ/L (98-107); CREATININE FOR GFR 0.85 MG/DL (0.70-1.30); GLOMERULAR FILTRATION RATE > 60.0 (>60); GLUCOSE, FASTING 100 MG/DL (70-105); MAGNESIUM LEVEL 2.1 MG/DL (1.8-2.4); POTASSIUM SERUM 3.9 MEQ/L (3.5-5.1); SODIUM LEVEL 137 MEQ/L (136-145); TOTAL PROTEIN 7.3 GM/DL (6.4-8.2)
[2017-06-19 06:35] LABS: MONO # 1.1 10^3/uL (0.0-0.8)
[2017-06-19 08:00] VITALS: BP 141/80
[2017-06-19] MEDS: PANTOPRAZOLE 40MG INJ (PROTONIX) (C9113) IV SCH (09:36)
[2017-06-19] MEDS: ENOXAPARIN 40 MG/0.4 ML SYRINGE (J1650) SC SCH (09:37)
[2017-06-19] MEDS: MORPHINE 15 MG SA TAB PO SCH ×2 (09:37→20:21)
[2017-06-19 12:00] VITALS: BP 137/78
--- NOTE | 2017-06-19 14:03 | IPNPDOC ---
Text Note Date of Service The patient was seen on 06/19/17. NOTE Subjective: Patient feels well. Anxious about going home. Denies CP/ palpitations. Objective: Vitals: (see below) General: No acute distress, laying comfortably in bed. HEENT: Moist mucous membranes. Neck: No JVD or lymphadenopathy Cardiac: RRR, No murmurs Pulm: Coarse crackles at the bases b/l. No wheezing, rhonchi Abd: NT/ND + BS Ext: No edema or cyanosis Labs (see below) Images: CT chest/abdomen/pelvis 06/15/17 IMPRESSION: No contrast is identified in the lumen of the aorta. Limited evaluation of the lumen of the aorta. The contrast is seen in the collecting systems. No evidence of aortic aneurysm. Bronchitis. Hepatomegaly with fatty liver infiltration. Bilateral cavitating subpleural consolidation are noted in the lower lobes measuring 1.8 cm on the right side and 2.2 cm on the left side. Possibly infectious/inflammatory pathology. Clinical evaluation and followup are suggested to exclude underlying neoplastic pathology. Assessment/Plan 1. Sepsis secondary to Bilateral cavitary lesions with consolidation- improving. Leukocytosis and CRP have trended down. Afebrile this point. s/p vancomycin and Zosyn. On ceftaroline for presumed staph post viral. Does have poor dentition with history of cocaine/opioid/marijuana use. Urine strep/ Legionella sent. Blood cultures negative thus far. HIV negative. ID on board. Echo pending 2. Back pain/chest wall pain- likely secondary to underlying cavitary lesions we will obtain a CT of the thoracic/lumbar spine. Pain control. 3. Lactic acidosis- resolved. 3. Polysubstance abuse- cessation counseling DVT prophy: Lovenox subcutaneous Plan to d/c in the next 24hr if continues to improve. VS,Fishbone, I+O VS, Fishbone, I+O Laboratory Tests 06/19/17 05:05 Red Blood Count 4.54, Mean Corpuscular Volume 86.1, Mean Corpuscular Hemoglobin 29.5, Mean Corpuscular Hemoglobin Concent 34.3, Red Cell Distribution Width 12.6 , Neutrophils (%) (Auto) 69.4 H, Lymphocytes (%) (Auto) 12.8 L, Monocytes (%) ( Auto) 9.6 H, Eosinophils (%) (Auto) 6.8 H, Basophils (%) (Auto) 0.4, Neutrophils # (Auto) 7.9 H, Lymphocytes # (Auto) 1.5, Monocytes # (Auto) 1.1 H, Eosinophils # (Auto) 0.8 H, Basophils # (Auto) 0.0, Calcium Level 9.2, Aspartate Amino Transf (AST/SGOT) 9 L, Alanine Aminotransferase (ALT/SGPT) 24, Alkaline Phosphatase 65, Total Bilirubin 0.7, Total Protein 7.3, Albumin 3.1 L Vital Signs Date Time Temp Pulse Resp B/P (MAP) Pulse Ox O2 Delivery O2 Flow Rate FiO2 06/19/17 12:00 98.1 71 18 137/78 (97) 99 Room Air 06/15/17 16:00 4.0 I&O- Last 24 Hours up to 6 AM 06/20/17 06:00 Intake Total 360 ml Output Total 700 ml Balance -340 ml IGOR LUCAS MD Jun 19, 2017 14:03
[2017-06-19 16:00] VITALS: BP 131/75
[2017-06-19 20:00] VITALS: BP 129/80
--- NOTE | 2017-06-19 22:58 | ECHO ---
DATE OF PROCEDURE: 06/19/2017 REFERRING PHYSICIAN: Mikki Foote MD PATIENT LOCATION: Room 3211 REASON FOR ECHOCARDIOGRAM: Fever. 2D MEASUREMENTS: IVS: 1.0 cm LV: 3.6 cm LVPW: 1.0 cm LA: 2.5 cm Aorta: 3.0 cm IVC: 1.36 cm DOPPLER MEASUREMENTS: Peak velocity across the aortic valve: 1.9 m/s Peak velocity across the LVOT: 1.5 m/s Mitral E: 0.81, Mitral A: 0.52, with a ratio of 1.5 Maximum tricuspid valve velocity: 2.4 m/s 2D COMMENTS: 1. Normal left ventricular size, wall thickness and left ventricular systolic function. The estimated global left ventricular systolic ejection fraction is 65 to 70%. 2. Normal left atrium. Normal right atrium and right ventricle. 3. The atrial septum appeared to be normal without evidence of defect or shunt. 4. Normal aortic root. 5. No pericardial effusion seen. 6. Minimally calcified aortic valve, leaflet excursion was not well visualized. Normal mitral valve, tricuspid valve. The pulmonic valve was not well visualized. The proximal pulmonary artery branches were not well visualized. 7. The inferior vena cava was normal in size, ventral venous pressure is most likely normal. DOPPLER: Only mild tricuspid regurgitation detected. The calculated pulmonary artery systolic pressure varied between 30 to 40 mmHg. Assessment of the left ventricular diastolic function appeared to be normal. IMPRESSION: 1. Normal global left ventricular systolic and diastolic function. 2. Aortic valve sclerosis without any significant aortic stenosis or aortic regurgitation. 3. Mild tricuspid regurgitation with mild pulmonary hypertension. 4. No vegetations detected in this transthoracic echocardiogram. To consider a transesophageal echocardiogram if clinical suspicion for endocarditis is high. ALEJANDROD
[2017-06-20 00:07] LABS: ORGANISM ID Not indicated. (.); SPECIMEN SOURCE Urine (.)
[2017-06-20] MEDS: KCL 40MEQ in NS 1000ML 1,000 ML IV SCH ×2 (02:03→14:46)
[2017-06-20 04:00] VITALS: BP 131/81
[2017-06-20 05:25] LABS: BASO # 0.1 10^3/uL (0.0-0.2); BASO % 0.6 % (0.0-1.0); EOS # 0.9 10^3/uL (0.0-0.50); IMMATURE GRANULOCYTE % 1.3 % (0-0); LYMPH # 1.9 10^3/uL (1.5-4.5); LYMPH % 13.1 % (24.0-44.0); MEAN CORPUSCULAR HEMOGLOBIN 29.6 pg (27.0-33.0); MEAN CORPUSCULAR HGB CONC 34.5 g/dl (32.0-36.5); MEAN CORPUSCULAR VOLUME 85.8 fl (80.0-96.0); MONO % 9.9 % (0.0-5.0); NEUTROPHILS # 9.8 10^3/uL (1.8-7.7); NEUTROPHILS % 69.1 % (36.0-66.0); PLATELET COUNT, AUTOMATED 203 10^3/uL (150-450); RED CELL DISTRIBUTION WIDTH 12.5 % (11.5-14.5); WHITE BLOOD COUNT 14.2 10^3/uL (4.0-10.0)
[2017-06-20 05:49] LABS: ALBUMIN 3.1 GM/DL (3.2-5.2); ALBUMIN/GLOBULIN RATIO 0.69 (1.00-1.93); ALKALINE PHOSPHATASE 69 U/L (45-117); ALT/SGPT 27 U/L (12-78); ANION GAP 8 MEQ/L (8-16); AST/SGOT 11 U/L (15-37); BILIRUBIN,TOTAL 0.6 MG/DL (0.2-1.0); BLOOD UREA NITROGEN 11 MG/DL (7-18); CALCIUM LEVEL 9.4 MG/DL (8.5-10.1); CARBON DIOXIDE LEVEL 25 MEQ/L (21-32); CHLORIDE LEVEL 104 MEQ/L (98-107); CREATININE FOR GFR 0.84 MG/DL (0.70-1.30); GLOMERULAR FILTRATION RATE > 60.0 (>60); GLUCOSE, FASTING 107 MG/DL (70-105); POTASSIUM SERUM 4.3 MEQ/L (3.5-5.1); SODIUM LEVEL 137 MEQ/L (136-145); TOTAL PROTEIN 7.6 GM/DL (6.4-8.2)
[2017-06-20] MEDS: CEFTAROLINE FOSAMIL 600 MG in D5W 50 ML IV SCH (05:56)
[2017-06-20 06:07] LABS: MONO # 1.4 10^3/uL (0.0-0.8)
[2017-06-20 08:00] VITALS: BP 140/88
[2017-06-20] MEDS: MORPHINE 15 MG SA TAB PO SCH (08:43)
[2017-06-20] MEDS: PANTOPRAZOLE 40MG INJ (PROTONIX) (C9113) IV SCH (08:43)
[2017-06-20] MEDS ORDERED: AUGM875T28 PO (12:05)
[2017-06-20] MEDS ORDERED: BACT800T5 PO (12:05)
[2017-06-20] MEDS ORDERED: ACIDCAP15 PO (12:05)
[2017-06-20 13:00] VITALS: BP 138/75
[2017-06-20] MEDS ORDERED: MORP15TASA PO (14:15)
[2017-06-20] MEDS ORDERED: PERC5TAB12 PO (14:19)
--- NOTE | 2017-06-20 16:34 | DS.PDOC ---
Discharge Summary General Date of Admission Jun 15, 2017 at 09:44 Date of Discharge 06/20/17 Attending Physician: IGOR LUCAS MD Specialist/Consultants Involve: Mikki Foote MD Discharge Summary PROCEDURES PERFORMED DURING STAY: None. ADMITTING/DISCHARGE DIAGNOSES: 1. Cavitary lesions likely bacterial 2. Sepsis secondary to bacterial pneumonia 3. Vertebral Disc herniation 4. Lactic acidosis resolved COMPLICATIONS/CHIEF COMPLAINT: Shortness of breath HISTORY OF PRESENT ILLNESS/HOSPITAL COURSE: This is a 32-year-old male with no significant past medical history aside from polysubstance abuse including cocaine, opiates, marijuana who presents complaining of stress breath. Patient was noted to have cavitary lesions at the pleural-based bilaterally, was started on broad-spectrum antibiotics with significant improvement of his inflammatory markers as well as his clinical condition. Infectious disease was consulted with recommendations for continuing antibiotics as this is likely a bacterial infection. The patient tolerated therapy well. Infectious diseases also ordered gamma interferon to rule out tuberculosis however it is believed that this is less likely the case. I did speak with , who recommends discharging the patient today on Augmentin and Bactrim to complete a full course of 2 weeks of antibiotics and she will follow up with him in the office outpatient. Patient also had pain from the pleural based cavitary lesions, and his pain was adequately controlled. Patient is hemodynamically stable and ready to be discharged home. Patient is return to ED if symptoms worsen. DISCHARGE MEDICATIONS: Please see below. ALLERGIES: Please see below. PHYSICAL EXAMINATION ON DISCHARGE: Vitals: (see below) General: No acute distress, laying comfortably in bed. HEENT: Moist mucous membranes. Neck: No JVD or lymphadenopathy Cardiac: RRR, No murmurs Pulm: Coarse crackles at the bases b/l. No wheezing, rhonchi Abd: NT/ND + BS Ext: No edema or cyanosis LABORATORY DATA: Please see below. IMAGING: CTA Chest 06/18/17 Impression: No pulmonary emboli. There is beam hardening artifact from the descendingthoracic aorta. Left pleural effusion, unchanged. Bilateral lower lobe pleural-based cavitary lesions, unchanged. Right hilar adenopathy. PROGNOSIS: Fair ACTIVITY: As tolerated. DIET: Regular DISCHARGE PLAN/DISPOSITION: Home DISCHARGE INSTRUCTIONS: 1. Follow-up with PCP and Dr. Hutchinson in one week. DISCHARGE CONDITION: Stable. TIME SPENT ON DISCHARGE: Greater than 30 minutes. Vital Signs/I&Os Vital Signs Date Time Temp Pulse Resp B/P (MAP) Pulse Ox O2 Delivery O2 Flow Rate FiO2 06/20/17 13:00 100.5 94 18 138/75 (96) 98 Room Air 06/15/17 16:00 4.0 I&O- Last 24 Hours up to 6 AM 06/21/17 06:00 Intake Total 600 ml Output Total 0 ml Balance 600 ml Laboratory Data Labs 24H Laboratory Tests 2 06/20/17 04:59: Immature Granulocyte % (Auto) 1.3H, White Blood Count 14.2H, Red Blood Count 4.66, Hemoglobin 13.8L, Hematocrit 40.0L, Mean Corpuscular Volume 85.8, Mean Corpuscular Hemoglobin 29.6, Mean Corpuscular Hemoglobin Concent 34.5, Red Cell Distribution Width 12.5, Platelet Count 203, Neutrophils (%) (Auto) 69.1H, Lymphocytes (%) (Auto) 13.1L, Monocytes (%) (Auto) 9.9H, Eosinophils (%) (Auto) 6.0H, Basophils (%) (Auto) 0.6, Neutrophils # (Auto) 9.8H, Lymphocytes # (Auto) 1.9, Monocytes # (Auto) 1.4H, Eosinophils # (Auto) 0.9H, Basophils # (Auto) 0.1 , Immature Granulocyte # (Auto) 0.2H, Nucleated Red Blood Cells % (auto) 0.0, Anion Gap 8, Glomerular Filtration Rate > 60.0, Blood Urea Nitrogen 11, Creatinine 0.84, Sodium Level 137, Potassium Level 4.3, Chloride Level 104, Carbon Dioxide Level 25, Calcium Level 9.4, Aspartate Amino Transf (AST/SGOT) 11L, Alanine Aminotransferase (ALT/SGPT) 27, Alkaline Phosphatase 69, Total Bilirubin 0.6, Total Protein 7.6, Albumin 3.1L, Magnesium Level 2.0, C-Reactive Protein, Quantitative 11.70H, Albumin/Globulin Ratio 0.69L 06/20/17 10:26: CBC/BMP Laboratory Tests 06/20/17 04:59 Red Blood Count 4.66, Mean Corpuscular Volume 85.8, Mean Corpuscular Hemoglobin 29.6, Mean Corpuscular Hemoglobin Concent 34.5, Red Cell Distribution Width 12.5 , Neutrophils (%) (Auto) 69.1 H, Lymphocytes (%) (Auto) 13.1 L, Monocytes (%) ( Auto) 9.9 H, Eosinophils (%) (Auto) 6.0 H, Basophils (%) (Auto) 0.6, Neutrophils # (Auto) 9.8 H, Lymphocytes # (Auto) 1.9, Monocytes # (Auto) 1.4 H, Eosinophils # (Auto) 0.9 H, Basophils # (Auto) 0.1, Calcium Level 9.4, Aspartate Amino Transf (AST/SGOT) 11 L, Alanine Aminotransferase (ALT/SGPT) 27, Alkaline Phosphatase 69, Total Bilirubin 0.6, Total Protein 7.6, Albumin 3.1 L Microbiology Microbiology 06/15/17 Blood Culture - Final, Complete NO GROWTH AFTER 5 DAYS 06/15/17 Blood Culture - Final, Complete NO GROWTH AFTER 5 DAYS 06/15/17 MRSA Screen - Final, Complete 06/15/17 Influenza Virus Type A Antigen - Final, Complete 06/15/17 Influenza Virus Type B Antigen - Final, Complete Discharge Medications Scheduled Amoxicillin/Clavulanate Potas (Augmentin 875-125 mg) 1 Tab Tab, 875 MG PO BID Lactobacillus (Acidophilus Probiotic) 1 Mg Tab, 1 MG PO BID Trimethoprim/Sulfamethoxazole (Bactrim Ds 800-160 mg) 1 Tab Tab, 1 TAB PO BID Scheduled PRN Oxycodone/Acetaminophen (Percocet 5-325 mg) 1 Tab Tab, 1 TAB PO Q6H PRN for PAIN Allergies Coded Allergies: No Known Allergies (Unverified , 06/15/17) IGOR LUCAS MD Jun 20, 2017 16:34
[2017-06-21 10:14] LABS: HEPATITIS C QUANTITATION HCV Not Detected IU/mL (.)
[2017-06-23 10:21] LABS: IgG SERUM (part of Subclasses) 617 mg/dL (700-1600); IgG Subclass 1 426 mg/dL (248-810); IgG Subclass 2 137 mg/dL (130-555); IgG Subclass 3 21 mg/dL (15-102); IgG Subclass 4 37 mg/dL (2-96)
== END 2017-06-20 15:30 | disposition home or self-care (01) | DRG 720 ==
LOC: M ED 04:12 → M ED INP 09:44 → M PCU 22:21 → M MSPAV 06-20 12:25
PROVIDERS: ADMIT Internal Medicine; ATTEND Internal Medicine
DX: A41.9 Sepsis, unspecified organism (principal); J15.9 Unspecified bacterial pneumonia; E87.2 Acidosis; F12.10 Cannabis abuse, uncomplicated; F14.10 Cocaine abuse, uncomplicated; F11.10 Opioid abuse, uncomplicated; Z87.891 Personal history of nicotine dependence; Z79.899 Other long term (current) drug therapy

== ENCOUNTER 2019-04-20 00:56 | Emergency (ER) | payer MEDICAID ==
[~2019-04-20] VITALS: Ht 180.3 cm; Wt 51.8 kg
[~2019-04-20 00:56] MED LIST: ACIDCAP15 PO; AUGM875T28 PO; BACT800T5 PO; MORP15TASA PO; PERC5TAB12 PO
[2019-04-20 01:20] LABS: BASO # 0.1 10^3/uL (0.0-0.2); BASO % 0.5 % (0.0-1.0); EOS # 0.5 10^3/uL (0.0-0.50); EOS % 2.9 % (0.0-3.0); HEMATOCRIT 41.4 % (42.0-52.0); HEMOGLOBIN 14.5 g/dl (13.5-17.5); LYMPH % 11.9 % (24.0-44.0); MEAN CORPUSCULAR HEMOGLOBIN 31.1 pg (27.0-33.0); MEAN CORPUSCULAR VOLUME 88.8 fl (80.0-96.0); MONO # 0.7 10^3/uL (0.0-0.8); MONO % 4.3 % (0.0-5.0); NEUTROPHILS # 13.2 10^3/uL (1.8-7.7); PLATELET COUNT, AUTOMATED 163 10^3/uL (150-450); RED BLOOD COUNT 4.66 10^6/uL (4.30-6.10); WHITE BLOOD COUNT 16.5 10^3/uL (4.0-10.0)
[2019-04-20] MEDS ORDERED: NS 1,000 ML IV ONE (01:30)
[2019-04-20] MEDS ORDERED: ONDANSETRON 4MG/2ML VIAL (J2405) IV ONE (01:30)
[2019-04-20] MEDS ORDERED: KETOROLAC 30 MG/ML VIAL (J1885) IV ONE (01:30)
[2019-04-20 01:40] LABS: ALBUMIN 4.3 GM/DL (3.2-5.2); ALT/SGPT 57 U/L (12-78); BILIRUBIN,DIRECT < 0.1 MG/DL (0.0-0.2); BILIRUBIN,TOTAL 0.2 MG/DL (0.2-1.0); BLOOD UREA NITROGEN 24 MG/DL (7-18); CALCIUM LEVEL 9.2 MG/DL (8.5-10.1); CARBON DIOXIDE LEVEL 27 MEQ/L (21-32); CHLORIDE LEVEL 105 MEQ/L (98-107); CREATININE FOR GFR 1.62 MG/DL (0.70-1.30); GLOMERULAR FILTRATION RATE 51.9 (>60); GLUCOSE, FASTING 141 MG/DL (70-100); LIPASE 126 U/L (73-393); POTASSIUM SERUM 3.8 MEQ/L (3.5-5.1); SODIUM LEVEL 139 MEQ/L (136-145); TOTAL PROTEIN 7.3 GM/DL (6.4-8.2)
[2019-04-20 01:43] LABS: AMPHETAMINES LEVEL URINE NEGATIVE (NEGATIVE); BARBITURATES URINE NEGATIVE (NEGATIVE); BENZODIAZEPINES URINE NEGATIVE (NEGATIVE); CANNABINOIDS URINE POSITIVE (NEGATIVE); COCAINE METABOLITE URINE POSITIVE (NEGATIVE); METHADONE URINE NEGATIVE (NEGATIVE); OPIATES URINE POSITIVE (NEGATIVE); PHENCYCLIDINE URINE NEGATIVE (NEGATIVE)
[2019-04-20 03:44] VITALS: BP 122/71
[2019-04-20] MEDS ORDERED: CIPROFLOXACIN 250 MG TAB PO ONE (03:45)
[2019-04-20] MEDS ORDERED: CIPR-250 PO (03:48)
--- NOTE | 2019-04-20 12:41 | REP ---
REASON FOR EXAM: Left flank pain. COMPARISON: 12/29/2008 The lung bases are clear. There is diffuse low density seen throughout the hepatic parenchyma. There is no cholelithiasis. Limited evaluation of the pancreas and adrenal glands show no gross abnormalities. Limited evaluation of the spleen shows no gross abnormalities. Limited evaluation of the bowel loops and their mesenteries show no gross abnormalities. There is no free fluid or free air in the abdomen or pelvis. Limited evaluation of the abdominal aorta and paraaortic regions show no gross abnormalities. There is a left-sided extrarenal pelvis, status quo. There is evidence of minimal left-sided hydronephrosis, status quo. There are no nephroliths or ureteroliths. There is no hydroureter, the right kidney is unchanged and unremarkable. The osseous structures are stable and intact. IMPRESSION: 1. There is fatty infiltration of the liver. 2. Extrarenal pelvis on the left possible UPJ configuration. This needs to be correlated clinically. 3. Other findings as described above. Electronically Signed by Dilip Chao DO 04/20/2019 02:20 P
== END 2019-04-20 04:24 | disposition home or self-care (01) ==
LOC: M ED 00:56
DX: N21.1 Calculus in urethra (principal); F19.10 Other psychoactive substance abuse, uncomplicated; Z87.442 Personal history of urinary calculi; Z72.0 Tobacco use; F12.10 Cannabis abuse, uncomplicated; K76.0 Fatty (change of) liver, not elsewhere classified
CPT/HCPCS: 74176; 80048; 80076; 80307; 81001; 83690; 85025; 96374; 96375; 99284; J1885; J2405

== ENCOUNTER → 2024-12-24 | Outpatient (CLI) | payer OTHER ==
[~2024-12-24] MED LIST changes: +CIPR-250 PO
[2024-12-24 14:19] LABS: HEMATOCRIT 39.7 % (42.0-52.0); HEMOGLOBIN 13.3 g/dl (13.5-17.5); MEAN CORPUSCULAR HEMOGLOBIN 30.5 pg (27.0-33.0); MEAN CORPUSCULAR HGB CONC 33.5 g/dl (32.0-36.5); MEAN CORPUSCULAR VOLUME 91.1 fl (80.0-96.0); PLATELET COUNT, AUTOMATED 149 10^3/uL (150-450); RED BLOOD COUNT 4.36 10^6/uL (4.30-6.10); WHITE BLOOD COUNT 8.8 10^3/uL (4.0-10.0)
[2024-12-24 14:46] LABS: ALBUMIN 3.8 G/DL (3.2-5.2); ALKALINE PHOSPHATASE 108 U/L (40-129); ALT/SGPT 138 U/L (7.0-40); AST/SGOT 83 U/L (<34); BILIRUBIN,TOTAL 0.3 MG/DL (0.3-1.2); BLOOD UREA NITROGEN 16 MG/DL (9-23); CALCIUM LEVEL 9.6 MG/DL (8.5-10.1); CARBON DIOXIDE LEVEL 29 MMOL/L (20-31); CHLORIDE LEVEL 105 MMOL/L (98-107); CREATININE FOR GFR 1.02 MG/DL (0.70-1.30); GLOMERULAR FILTRATION RATE > 90.0 (>60); GLUCOSE, FASTING 76 MG/DL (60-100); POTASSIUM SERUM 4.3 MMOL/L (3.5-5.1); SODIUM LEVEL 143 MMOL/L (136-145); TOTAL PROTEIN 7.3 G/DL (5.7-8.2)
[2024-12-24 15:00] LABS: HEPATITIS B SURFACE ANTIGEN NEGATIVE (NEGATIVE)
[2024-12-24 15:13] LABS: HIV 1&2 SCREEN NEGATIVE (NEGATIVE)
[2024-12-24 15:21] LABS: HEPATITIS C VIRUS ABY INDEX 0.06 INDEX (<0.8)
[2024-12-24 15:53] LABS: GC DNA AMPLIFICATION NEGATIVE (NEGATIVE)
== END ==
LOC: M LAB 13:34
PROVIDERS: ATTEND Family Medicine
DX: F11.20 Opioid dependence, uncomplicated (principal)

== ENCOUNTER 2025-03-05 14:19 | Inpatient (IN) | payer OTHER ==
[~2025-03-05] VITALS: Ht 180.3 cm; Wt 118.4 kg
[~2025-03-05 14:19] MED LIST changes: +MORP-138 PO; -MORP15TASA PO
[2025-03-05 14:51] LABS: BASO # 0.1 10^3/uL (0.0-0.2); BASO % 0.4 % (0.0-1.0); EOS # 0.2 10^3/uL (0.0-0.5); EOS % 1.1 % (0.0-3.0); HEMATOCRIT 43.4 % (42.0-52.0); LYMPH # 4.1 10^3/uL (1.5-5.0); MEAN CORPUSCULAR HEMOGLOBIN 29.9 pg (27.0-33.0); MEAN CORPUSCULAR HGB CONC 32.3 g/dl (32.0-36.5); MEAN CORPUSCULAR VOLUME 92.5 fl (80.0-96.0); MONO # 0.7 10^3/uL (0.0-0.8); MONO % 5.1 % (2.0-8.0); NEUTROPHILS # 8.1 10^3/uL (1.5-8.5); NEUTROPHILS % 61.3 % (36.0-66.0); PLATELET COUNT, AUTOMATED 219 10^3/uL (150-450); RED BLOOD COUNT 4.69 10^6/uL (4.30-6.10); WHITE BLOOD COUNT 13.2 10^3/uL (4.0-10.0)
[2025-03-05] MEDS: MORPHINE 4 MG/ML 1 ML VIAL IV PRN ×2 (14:52→19:07)
[2025-03-05] MEDS: ONDANSETRON 4MG 2ML VIAL IV ONE (14:54)
[2025-03-05 15:04] LABS: INR 0.98; PROTHROMBIN TIME 13.3 SECONDS (12.5-14.5)
[2025-03-05] MEDS ORDERED: ISOVUE-370 76% 100 ML VIAL As Ordered ONE (15:10)
[2025-03-05 15:21] LABS: ETHYL ALCOHOL (ETHANOL) < 0.003 % (0.000-0.010); LIPASE 41 U/L (12-53)
[2025-03-05 15:22] LABS: AMYLASE 61 U/L (30-118)
[2025-03-05 15:23] LABS: ALBUMIN 4.2 G/DL (3.2-5.2); ALKALINE PHOSPHATASE 131 U/L (40-129); ALT/SGPT 247 U/L (7.0-40); AST/SGOT 260 U/L (<34); BILIRUBIN,DIRECT 0.2 MG/DL (<0.4); BILIRUBIN,TOTAL 0.5 MG/DL (0.3-1.2); BLOOD UREA NITROGEN 14 MG/DL (9-23); CALCIUM LEVEL 9.1 MG/DL (8.5-10.1); CARBON DIOXIDE LEVEL 26 MMOL/L (20-31); CHLORIDE LEVEL 103 MMOL/L (98-107); CREATININE FOR GFR 1.18 MG/DL (0.70-1.30); GLOMERULAR FILTRATION RATE 79.5 (>60); GLUCOSE, FASTING 134 MG/DL (60-100); POTASSIUM SERUM 3.8 MMOL/L (3.5-5.1); SODIUM LEVEL 141 MMOL/L (136-145); TOTAL PROTEIN 7.3 G/DL (5.7-8.2)
[2025-03-05 15:31] LABS: CK-MB VALUE MASS 2.8 NG/ML (<3.6)
[2025-03-05 15:33] LABS: CPK CREATINE PHOSPHOKINASE 198 U/L (46-171); MB/CK RELATIVE INDEX 1.41 (< OR =4)
[2025-03-05] MEDS: BOOSTRIX VACCINE (TETANUS/DIPHTH/ACEL. PERTUSSIS) 0.5 ML SYR IM.IMMUN ONE (16:04)
[2025-03-05 16:34] LABS: APPEARANCE, URINE CLEAR (CLEAR); BACTERIA, URINE AUTO NEGATIVE (NEGATIVE); BILIRUBIN, URINE AUTO NEGATIVE (NEGATIVE); BLOOD, URINE BLOOD NEGATIVE (NEGATIVE); COLOR, URINE YELLOW (YELLOW); GLUCOSE, URINE (UA) AUTO NEGATIVE (NEGATIVE); KETONE, URINE AUTO TRACE mg/dL (NEGATIVE); LEUKOCYTE ESTERASE, URINE AUTO NEGATIVE (NEGATIVE); MUCUS, URINE SMALL (NEGATIVE); NITRITE, URINE AUTO NEGATIVE (NEGATIVE); PROTEIN, URINE AUTO NEGATIVE (NEGATIVE); RBC, URINE AUTO 1 /HPF (0-3); SPECIFIC GRAVITY URINE AUTO 1.031 (1.002-1.035); SQUAMOUS EPITHELIAL CELL UR AU 0 /HPF (0-6); UROBILINOGEN, URINE AUTO 0.2 mg/dL (0.0-2.0); WBC, URINE AUTO 1 /HPF (0-3)
[2025-03-05 16:49] LABS: AMPHETAMINES LEVEL URINE NEGATIVE (NEGATIVE); BARBITURATES URINE NEGATIVE (NEGATIVE); BENZODIAZEPINES URINE NEGATIVE (NEGATIVE); COCAINE METABOLITE URINE NEGATIVE (NEGATIVE); PHENCYCLIDINE URINE NEGATIVE (NEGATIVE)
[2025-03-05 16:50] LABS: CK-MB VALUE MASS 4.8 NG/ML (<3.6)
[2025-03-05 16:51] LABS: CANNABINOIDS URINE POSITIVE (NEGATIVE); METHADONE URINE POSITIVE (NEGATIVE); OPIATES URINE POSITIVE (NEGATIVE)
[2025-03-05 16:52] LABS: MB/CK RELATIVE INDEX 2.06 (< OR =4)
[2025-03-05] MEDS ORDERED: MORPHINE 4 MG/ML 1 ML VIAL As Ordered ONE (17:06)
[2025-03-05] MEDS: MORPHINE 4 MG/ML 1 ML VIAL IV ONE (17:29)
[2025-03-05] MEDS ORDERED: METH10CO PO (18:03)
[2025-03-05] MEDS ORDERED: MED REC IN PROGRESS XX SCH (18:05)
[2025-03-05] MEDS ORDERED: ONDANSETRON 4MG 2ML VIAL IV PRN (18:50)
[2025-03-05] MEDS ORDERED: HYDROCODONE/ACETAMINOPHEN 5/325 MG TABLET PO PRN (18:50)
[2025-03-05] MEDS: NS (Normal Saline) 0.9% 1,000 ML IV SCH (19:09)
[2025-03-05 19:28] LABS: AMPHETAMINES LEVEL URINE NEGATIVE (NEGATIVE)
[2025-03-05 19:29] LABS: BARBITURATES URINE NEGATIVE (NEGATIVE); BENZODIAZEPINES URINE NEGATIVE (NEGATIVE); COCAINE METABOLITE URINE NEGATIVE (NEGATIVE); PHENCYCLIDINE URINE NEGATIVE (NEGATIVE)
[2025-03-05 19:33] LABS: CANNABINOIDS URINE POSITIVE (NEGATIVE); METHADONE URINE POSITIVE (NEGATIVE); OPIATES URINE POSITIVE (NEGATIVE)
[2025-03-05] MEDS: SENNOSIDES/DOCUSATE SODIUM 8.6 MG/50MG TAB PO SCH (21:00)
[2025-03-05 21:38] VITALS: BP 170/114; TEMP 97.3; O2SAT 99
[2025-03-05 21:49] VITALS: BP 152/70
[2025-03-06] VITALS (11 sets, daily range): BP systolic 108–164; BP diastolic 62–86; TEMP 96.6–97.5; O2SAT 95–100
[2025-03-06] MEDS: MORPHINE 2 MG/ML 1 ML VIAL IV PRN (02:31)
[2025-03-06 05:42] LABS: HEMATOCRIT 38.5 % (42.0-52.0); HEMOGLOBIN 12.3 g/dl (13.5-17.5); MEAN CORPUSCULAR HEMOGLOBIN 29.9 pg (27.0-33.0); MEAN CORPUSCULAR HGB CONC 31.9 g/dl (32.0-36.5); MEAN CORPUSCULAR VOLUME 93.7 fl (80.0-96.0); PLATELET COUNT, AUTOMATED 133 10^3/uL (150-450); RED BLOOD COUNT 4.11 10^6/uL (4.30-6.10); WHITE BLOOD COUNT 10.3 10^3/uL (4.0-10.0)
[2025-03-06 06:35] LABS: BLOOD UREA NITROGEN 13 MG/DL (9-23); CALCIUM LEVEL 8.2 MG/DL (8.5-10.1); CARBON DIOXIDE LEVEL 21 MMOL/L (20-31); CHLORIDE LEVEL 108 MMOL/L (98-107); CREATININE FOR GFR 0.83 MG/DL (0.70-1.30); GLOMERULAR FILTRATION RATE > 90.0 (>60); GLUCOSE, FASTING 110 MG/DL (60-100); POTASSIUM SERUM 4.3 MMOL/L (3.5-5.1); SODIUM LEVEL 139 MMOL/L (136-145)
[2025-03-06] MEDS: PANTOPRAZOLE 40MG VIAL IV SCH (08:06)
[2025-03-06] MEDS ORDERED: MIDAZOLAM INJ 2 MG/2 ML VIAL As Ordered ONE (10:23)
[2025-03-06] MEDS ORDERED: propofoL 200 MG/20 ML VIAL As Ordered ONE (10:23)
[2025-03-06] MEDS ORDERED: ONDANSETRON 4MG 2ML VIAL As Ordered ONE (10:23)
[2025-03-06] MEDS ORDERED: dexAMETHasone 4 MG/ML 1 ML VIAL As Ordered ONE (10:23)
[2025-03-06] MEDS ORDERED: ACETAMINOPHEN 1000MG/100ML IV BAG As Ordered ONE (10:23)
[2025-03-06] MEDS ORDERED: LIDOCAINE 2% 100 MG/5 ML SDV (FOR ANES.) As Ordered ONE (10:23)
[2025-03-06] MEDS ORDERED: fentaNYL 100 MCG/2 ML INJECTION As Ordered ONE (10:23)
[2025-03-06] MEDS ORDERED: dexmedeTOMIDine (4 MCG/ML) 200 MCG/50 ML BTL As Ordered ONE (10:27)
[2025-03-06] MEDS: MIDAZOLAM INJ 2 MG/2 ML VIAL IV PRN (10:37)
[2025-03-06] MEDS: fentaNYL 100 MCG/2 ML INJECTION IV PRN (10:37)
[2025-03-06] MEDS: ROPIvacaine 0.5% 30ML VIAL PN ONE ×2 (10:50→13:25)
[2025-03-06] MEDS: ceFAZolin SODIUM 2 GM VIAL As Ordered ONE (11:31)
[2025-03-06] MEDS ORDERED: KETOROLAC 30 MG/ML 1 ML VIAL As Ordered ONE (11:44)
[2025-03-06] MEDS ORDERED: HYDROmorphone HCL 2 MG/ML 1 ML VIAL As Ordered ONE (12:07)
[2025-03-06] MEDS ORDERED: HYDROMORPHONE HCL 0.5 MG/0.5 ML SYRINGE IV PRN (12:35)
[2025-03-06] MEDS ORDERED: MORPHINE 2 MG/ML 1 ML VIAL IV PRN (12:35)
[2025-03-06] MEDS ORDERED: PERCOCET 5MG/325MG TAB PO PRN (12:35)
[2025-03-06] MEDS: ceFAZolin SODIUM 2 GM in DEXTROSE 5% (D5W) ADV/MINI-BAG 50 ML IV SCH (18:26)
[2025-03-07] MEDS: MORPHINE 2 MG/ML 1 ML VIAL IV PRN (03:50)
[2025-03-07 04:35] VITALS: BP 144/102; TEMP 98.1
[2025-03-07 06:05] LABS: HEMATOCRIT 36.5 % (42.0-52.0); HEMOGLOBIN 11.6 g/dl (13.5-17.5); MEAN CORPUSCULAR HEMOGLOBIN 30.1 pg (27.0-33.0); MEAN CORPUSCULAR HGB CONC 31.8 g/dl (32.0-36.5); MEAN CORPUSCULAR VOLUME 94.6 fl (80.0-96.0); PLATELET COUNT, AUTOMATED 109 10^3/uL (150-450); RED BLOOD COUNT 3.86 10^6/uL (4.30-6.10); WHITE BLOOD COUNT 9.6 10^3/uL (4.0-10.0)
[2025-03-07 06:26] LABS: BLOOD UREA NITROGEN 12 MG/DL (9-23); CALCIUM LEVEL 7.9 MG/DL (8.5-10.1); CARBON DIOXIDE LEVEL 23 MMOL/L (20-31); CHLORIDE LEVEL 108 MMOL/L (98-107); CREATININE FOR GFR 0.85 MG/DL (0.70-1.30); GLOMERULAR FILTRATION RATE > 90.0 (>60); GLUCOSE, FASTING 135 MG/DL (60-100); POTASSIUM SERUM 3.9 MMOL/L (3.5-5.1); SODIUM LEVEL 141 MMOL/L (136-145)
[2025-03-07 08:00] VITALS: O2SAT 2
[2025-03-07 08:12] VITALS: BP 151/98; TEMP 97.7; O2SAT 97
[2025-03-07] MEDS ORDERED: PILL CUTTER 1 EACH XX PRN (12:05)
[2025-03-07] MEDS: METHADONE 10 MG TAB PO SCH (12:12)
[2025-03-07 12:15] VITALS: BP 152/86; TEMP 97.3; O2SAT 98
[2025-03-07 16:08] VITALS: BP 152/96; TEMP 97.2; O2SAT 94
[2025-03-07] MEDS: PERCOCET 5MG/325MG TAB PO PRN (17:51)
[2025-03-07] MEDS: RIVAROXABAN 10MG TAB PO SCH (17:52)
[2025-03-08] MEDS ORDERED: METHADONE 10 MG TAB PO SCH (09:00)
== END 2025-03-07 18:07 | disposition home or self-care (01) | DRG 315 ==
LOC: M ED 14:19 → M ED INP 18:49 → M MSPAV 21:33
PROVIDERS: ADMIT Surgery; ATTEND Internal Medicine
PROC: 0PSJ04Z Reposition Left Radius with Internal Fixation Device, Open Approach (ICD-10-PCS; principal; 2025-03-06 10:00)
DX: S52.352A Displaced comminuted fracture of shaft of radius, left arm, initial encounter for closed fracture (principal); S22.41XA Multiple fractures of ribs, right side, initial encounter for closed fracture; S02.40EA Zygomatic fracture, right side, initial encounter for closed fracture; I10 Essential (primary) hypertension; F41.9 Anxiety disorder, unspecified; V29.31XA Electric (assisted) bicycle (driver) (passenger) injured in unspecified nontraffic accident, initial encounter; Y92.410 Unspecified street and highway as the place of occurrence of the external cause; Y99.8 Other external cause status; Y93.89 Activity, other specified; F11.20 Opioid dependence, uncomplicated

== ENCOUNTER → 2025-03-24 | Outpatient (CLI) | payer OTHER ==
[~2025-03-24] MED LIST changes: +METH10CO PO
== END ==
LOC: M SOG 07:09
PROVIDERS: ATTEND Orthopaedic Surgery
DX: S52.572A Other intraarticular fracture of lower end of left radius, initial encounter for closed fracture (principal); W18.30XA Fall on same level, unspecified, initial encounter; Y92.009 Unspecified place in unspecified non-institutional (private) residence as the place of occurrence of the external cause

== ENCOUNTER → 2025-05-14 | Outpatient (CLI) | payer OTHER | LOC: M SOG 07:22 | PROVIDERS: ATTEND Orthopaedic Surgery | DX: S52.572D Other intraarticular fracture of lower end of left radius, subsequent encounter for closed fracture with routine healing (principal) ==